=== PATIENT | male | born 1970 | race African-American/Black ===

== ENCOUNTER 2016-07-22 17:30 | Emergency (ER) | payer OTHER ==
--- NOTE | ~2016-07-22 | EKG ---
PATIENT: BEKA OBREGON UNIT #: [id number] Ventricular Rate: 77 BPM Atrial Rate: 77 BPM P-R Interval: 182 ms QRS Duration: 100 ms Q-T Interval: 396 ms QTC Calculation(Bezet): 448 ms P [place]: 65 degrees Calculated R [place]: -7 degrees Calculated T [place]: 107 degrees Diagnosis Line: Normal sinus rhythm Diagnosis Line: Anterior infarct , age undetermined Diagnosis Line: T wave abnormality, consider lateral ischemia Diagnosis Line: Abnormal ECG Diagnosis Line: When compared with ECG of 12-FEB-2015 01:38, Diagnosis Line: No significant change was found Diagnosis Line: Confirmed by DIPTI CASTRO MD ([id number]) on 07/24/2016 Diagnosis Line: 8:03:41 PM INTERPRETING MD: MATTHEW MARISCAL
--- NOTE | ~2016-07-22 | CR72 ---
[facility] A Service of [facility] RADIOLOGY TEXT RESULTS PATIENT: BEKA OBREGON RAY LOCATION: SED : 74 UNIT #: [id number] AGE: [address]: Jesus Matta PAC SEX: M ORDER DR: [id number] [place] [id number] [id number] E MR#: [id number] Acc #: [id number] NAME: BEKA OBREGON : 1970 SEX: M STUDY DATE/TIME: 07/22/2016 18:19 UNIT: SED ROOM: STUDY DESCRIPTION: CR Chest Single View Portable Attending Physician: Jesus Matta P.A.-C. Ordering Physician: Jesus Matta P.A.-C. Primary Care Physician: Liudmila Nazario Aprn MEDICAL IMAGING REPORT This report is preliminary unless electronic signature is present. EXAM Frontal chest, 07/22/2016 INDICATION 45-year-old male with shortness of air, nausea, vomiting, diarrhea, weakness, symptoms began today. TECHNIQUE Frontal chest compared with 08/30/2013. FINDINGS Cardiac silhouette is borderline enlarged but stable for technical factors. Vascularity is normal. Lung volumes are low. There is no dense consolidation, effusion or pneumothorax. IMPRESSION Borderline to mild cardiomegaly is unchanged. No other significant change from 08/30/2013. Dictated by... Ciaran Lozoya M.D. THIS IS AN ELECTRONICALLY VERIFIED REPORT Ciaran Lozoya M.D. at 07/23/2016 11:40 AM TRUNG/arlen TD: 07/22/2016 23:13 JOB #: [id number] [facility] A Service [facility] RADIOLOGY TEXT RESULTS PATIENT: BEKA OBREGON RAY LOCATION: SED : 74 UNIT #: [id number] AGE: [address]: Jesus Matta PAC SEX: M ORDER DR: MEDICAL IMAGING REPORT Page 1 of 1
[~2016-07-22 17:30] MED LIST: ALDACTONE PO; AMLODIPINE BESY10 MG PO; AMLODIPINE BESYL5 MG PO; ANEXSIA 7.5/3251 TA1 PO; AUGMENTIN PO; CHLORTHALIDONE50 M1 PO; CLONIDINE PO; HYDRALAZINE HC100 MG PO; HYDRALAZINE HCL50 MG PO; KCL PO; LOPRESSOR PO; MINOXIDIL PO; MINOXIDIL2.5 MG PO; NO MEDICATIONS; NORVASC10 MG PO; PRINIVIL20 M1 PO; SIMVASTATIN40 MG PO; ZOCOR10 MG PO
[2016-07-22 18:05] LABS: BASOPHIL# 0.1 X10e3 (0-0.3); BASOPHIL% 0.8 % (0-2.5); EOSINOPHIL# 0.1 X10e3 (0-0.7); EOSINOPHIL% 1.5 % (0.0-7.0); HEMATOCRIT 40.5 % (38.0-50.0); LYMPHOCYTE# 1.3 X10e3 (1.0-3.5); LYMPHOCYTE% 14.4 % (17.0-45.0); MEAN CELL VOLUME 80.2 FL (83-96); MEAN CORPUSCULAR HEMOGLOBIN 25.8 PG (28-34); MEAN CORPUSCULAR HGB CONC 32.2 g/dL (30-36); MEAN PLATELET VOLUME 9.1 FL (6.5-11.5); MONOCYTE# 0.8 X10e3 (0-1.0); MONOCYTE% 8.8 % (3.0-12.0); NEUTROPHIL# 6.7 X10e3 (1.5-7.1); NEUTROPHIL% 74.5 % (40-75); PLATELET COUNT 151 X10e3 (140-420); RED BLOOD COUNT 5.05 X10e (3.90-5.60); RED CELL DISTRIBUTION WIDTH 13.7 % (11.0-15.5); WHITE BLOOD COUNT 8.9 X10e3 (4.0-10.5)
[2016-07-22 18:07] LABS: DIFF IND NO
[2016-07-22 18:24] LABS: POC - TROPONIN <0.05 ng/mL (<=0.05)
[2016-07-22 18:30] LABS: ALBUMIN SERUM 4.2 g/dL (3.5-5.0); BILIRUBIN, DIRECT 0.1 mg/dL (0.0-0.2); BILIRUBIN,INDIRECT 0.3 mg/dL (0.0-0.9); BILIRUBIN,TOTAL 0.4 mg/dL (0.2-2.0); BUN/CREATININE RATIO 16.66; CALCIUM SERUM 8.5 mg/dL (8.4-10.2); CREATININE SERUM 2.1 mg/dL (0.6-1.4); GLOM FILT RATE Estimated 43.4 mL/min (>60); POTASSIUM 3.2 mmol/L (3.5-5.1); PROTEIN TOTAL SERUM 7.5 g/dL (6.0-8.3)
[2016-07-22 18:52] LABS: URINE SOURCE CLEAN CATCH
[2016-07-22 18:56] LABS: URINE APPEARANCE CLEAR; URINE BILIRUBIN NEG (NEG); URINE BLOOD NEG (NEG); URINE COLOR YELLOW; URINE GLUCOSE NEG (NORM); URINE KETONE NEG (NEG); URINE LEUKOCYTE ESTERASE NEG (NEG); URINE NITRATE NEG (NEG); URINE PROTEIN NEG (NEG); URINE UROBILINOGEN 0.2 MG/DL (NORM)
[2016-07-22 18:58] LABS: MICRO INDICATED? NO
== END 2016-07-22 20:47 | disposition home or self-care (01) ==
LOC: SED 17:30
PROVIDERS: Physician Assistant
DX: N28.9 Disorder of kidney and ureter, unspecified (principal); I10 Essential (primary) hypertension; F17.210 Nicotine dependence, cigarettes, uncomplicated
CPT/HCPCS: 36415; 71010; 80048; 80076; 81003; 82553; 83690; 83874; 84484; 85025; 93005; 96361; 96374; 99284; J2405